=== PATIENT | female | born 1985 | race Caucasian/White ===

== ENCOUNTER 2018-11-20 16:06 | Emergency (ER) | payer SELFPAY ==
[~2018-11-20] VITALS: Ht 172.7 cm; Wt 66.3 kg
[2018-11-20 16:10] VITALS: BP 100/55; PULSE 76; RESP 18; Ht 172.7 cm; Wt 66.3 kg
== END 2018-11-20 18:20 | disposition left against medical advice (07) ==
LOC: FTE 16:06
DX: Z53.21 Procedure and treatment not carried out due to patient leaving prior to being seen by health care provider (principal)